=== PATIENT | female | born 1940 | race Caucasian/White ===

== ENCOUNTER 2019-03-27 13:19 | Emergency (ER) | payer MEDICARE, OTHER ==
[2019-03-27 13:23] VITALS: Wt 52.7 kg
[2019-03-27] MEDS ORDERED: TIROSINT25 MCG PO (13:33)
[2019-03-27] MEDS ORDERED: AMBIEN5 MG PO (13:33)
[2019-03-27] MEDS ORDERED: FUROSEMIDE20 MG PO (13:33)
[2019-03-27] MEDS ORDERED: K-TAB10 MEQ PO (13:34)
[2019-03-27] MEDS ORDERED: MACROBID100 MG PO (13:46)
[2019-03-27] MEDS ORDERED: PHENAZOPYRIDIN200 MG PO (13:48)
[2019-03-27 14:20] LABS: APPEARANCE CLOUDY (CLEAR); COLOR YELLOW (YELLOW); GLUCOSE NEGATIVE (NEGATIVE); KETONE NEGATIVE (NEGATIVE); NITRITE NEGATIVE (NEGATIVE); PROTEIN 1+ mg/dL (NEGATIVE); SPECIFIC GRAVITY 1.015 (1.005-1.020); UROBILINOGEN NORMAL (NORMAL)
[2019-03-27 14:21] LABS: BILIRUBIN NEGATIVE (NEGATIVE)
[2019-03-27 14:25] LABS: BACTERIA FEW /hpf (NONE SEEN); EPITHELIAL CELLS 0-5 /hpf (0-5); RED CELLS - URINE 0-5 /hpf (0-5); WHITE CELLS - URINE >50 /hpf (0-5)
[2019-03-27 15:00] VITALS: BP 149/90
== END 2019-03-27 15:00 | disposition home or self-care (01) ==
LOC: D.ER 13:19
PROVIDERS: Emergency Medicine
DX: N39.0 Urinary tract infection, site not specified (principal)